=== PATIENT | female | born 1985 | race Caucasian/White ===

== ENCOUNTER → 2018-08-06 | Outpatient (CLI) | payer BC ==
--- NOTE | 2018-08-06 12:46 | PCVCIMAG ---
APPROVED REPORT Study performed: 08/06/2018 08:11:19 EXAM: Comprehensive 2D, Doppler, and color-flow Echocardiogram Patient Location: Echo lab Status: routine BSA: 1.89 HR: 48 bpmBP: 108/70 mmHg Rhythm: Bradycardia Other Information Study Quality: Good Indications Bradycardia 2D Dimensions IVSd: 7.90 (7-11mm)LVOT Diam: 18.37 (18-24mm) LVDd: 46.70 mm PWd: 8.09 (7-11mm)Ascending Ao: 20.87 (22-36mm) LVDs: 30.39 (25-40mm) Left Atrium: 29.83 (27-40mm) Aortic Root: 28.06 mm Volumes Left Atrial Volume (Systole) Single Plane 4CH: 53.07 mLSingle Plane 2CH: 60.13 mL LA ESV Index: 33.00 mL/m2 Aortic Valve AoV Peak Dalton.: 1.64 m/s AO Peak Gr.: 10.69 mmHgLVOT Max P.64 mmHg LVOT Max V: 1.08 m/s AYALA Vmax: 1.74 cm2 Mitral Valve E/A Ratio: 1.6 MV Decel. Time: 377.70 ms MV E Max Dalton.: 0.77 m/s MV A Dalton.: 0.49 m/s TDI E/Lateral E': 5.92E/Medial E': 9.63 Medial E' Dalton.: 0.08 m/s Lateral E' Dalton.: 0.13 m/s Pulmonary Valve PV Peak Dalton.: 1.06 m/sPV Peak Gr.: 4.47 mmHg AZ End Vmax: 0.89 m/s Pulmonary Vein P Vein S: 0.42 m/sP Vein A: 0.29 m/s P Vein D: 0.51 m/sP Vein A Dur.: 96.9 msec P Vein S/D Ratio: 0.82 Tricuspid Valve TR Peak Dalton.: 2.05 m/sRAP Estimate: 7.00 mmHg TR Peak Gr.: 16.85 mmHg PA Pressure: 23.00 mmHg Left Ventricle The left ventricle is normal size. There is normal LV segmental wall motion. There is normal left ventricular wall thickness. Left ventricular systolic function is normal. The left ventricular ejection fraction is within the normal range. LVEF is 60-65%. The left ventricular diastolic function is normal. Right Ventricle The right ventricle is normal size. The right ventricular systolic function is normal. Atria Left atrium is at the upper limits of normal. Right atrium is at the upper limits of normal. Aortic Valve The aortic valve is normal in structure. No aortic regurgitation is present. There is no aortic valvular stenosis. Mitral Valve The mitral valve is normal in structure. Trace mitral regurgitation. No evidence of mitral valve stenosis. Tricuspid Valve The tricuspid valve is normal in structure. Trace to mild tricuspid regurgitation. Pulmonary artery pressure is 23 mmHg. Pulmonic Valve The pulmonary valve is normal in structure. There is no pulmonic valvular regurgitation. Great Vessels The aortic root is normal in size. IVC is normal in size and collapses >50% with inspiration. Pericardium There is no pericardial effusion. <Conclusion> The left ventricle is normal size. LVEF is 60-65%. The aortic valve is normal in structure. The mitral valve is normal in structure. Trace mitral regurgitation. The tricuspid valve is normal in structure. Trace to mild tricuspid regurgitation. Pulmonary artery pressure is 23 mmHg. The pulmonary valve is normal in structure. There is no pericardial effusion.
== END | disposition home or self-care (01) ==
LOC: PCVCIMAG 08:00
PROVIDERS: ATTEND Internal Medicine
DX: I07.1 Rheumatic tricuspid insufficiency (principal); R00.1 Bradycardia, unspecified
CPT/HCPCS: 93306